=== PATIENT | female | born 1990 | race Hispanic/Latino ===

== ENCOUNTER 2019-05-13 23:34 | Emergency (ER) | payer SELFPAY ==
--- NOTE | 2019-05-14 07:46 | ULT ---
PRELIMINARY REPORT/[facility]/EMERGENCY AFTER HOURS PROCEDURE: EXAM: US First Trimester, Transabdominal and US , Transvaginal EXAM DATE/TIME: 05/14/2019 12:53 AM CLINICAL HISTORY: 28 years old, female; Lmp or gestational age (in weeks): Lmp 02/09/19; Antepartum complications; Bleed ing and other: Heavy bleeding with clots; complicated by abdominal or pelvic pain; Lower; F irst trimester; ; Patient HX: Pelvic pain, vaginal bleeding x wks TECHNIQUE: Imaging protocol: Real-time transabdominal obstetrical ultrasound of the maternal pelvis and a first trimester , less than 14 weeks 0 days, with image documentation. Transvaginal imaging was us ed for better evaluation of the fetus and adnexa. COMPARISON: No relevant prior studies available. FINDINGS: GESTATION: Gestation: Single intrauterine gestation. Heart rate: No detectable cardiac activity by color or M. mode Doppler interrogation. Placenta: Small subchorionic hematoma. Amniotic fluid: Amniotic and chorionic fluid are normal for gestational age. BIOMETRY: Estimated gestational age: [place]-rump length correlates with estimated gestational age of 7 weeks one day. MATERNAL: Uterus: Unremarkable. Cervix: Cervical canal is mildly distended with fluid. Right adnexa: Right ovary not visualized. Left adnexa: Normal left ovary with normal Doppler signal. Intraperitoneal: No intraperitoneal free fluid. IMPRESSION: 1. Single intrauterine gestation with no detectable cardiac activity, worrisome for demis e. 2. Small subchorionic hematoma. 3. Cervical canal is mildly distended with fluid. Thank you for allowing us to participate in the care of your patient. Dictated and Authenticated by: Sreedhar Duran MD 05/14/2019 3:06 AM Central Time ([place] & [place]) FINAL REPORT PELVIC ULTRASOUND: HISTORY: First trimester with heavy bleeding. FINDINGS: Real-time imaging of the pelvis was obtained transabdominally, as well as with an endovaginal probe. This shows an intrauterine gestational sac. Gestational sac measurements are 2.4 cm. pole is se en, crown-rump length measurements are 1.1 cm, corresponding to 7 weeks/2 days. There is no act ivity or heart activity seen on this examination, concerning for demise. Subtle subchorionic bl eed noted. The left ovary is normal in appearance. Right ovary is not visualized. DOPPLER EVALUATION WITH SPECTRAL ANALYSIS: Normal flow shown to the left ovary. IMPRESSION: Intrauterine gestational sac and pole, corresponding to 7 weeks/3 days. No activity is se en. This is concerning for demise. This report is in agreement with the preliminary report issued by [facility]. POS: [facility]
== END 2019-05-14 02:00 | disposition home or self-care (01) ==
LOC: ERS 23:34
DX: O03.9 Complete or unspecified spontaneous abortion without complication (principal)
CPT/HCPCS: 76856